=== PATIENT | female | born 1970 | race American Indian/Alaskan Native ===

== ENCOUNTER 2017-07-29 08:52 | Emergency (ER) | payer OTHER ==
[2017-07-29 08:52] VITALS: BMI 26.5
[2017-07-29 09:06] VITALS: BP 148/100; PULSE 64; RESP 18; TEMP 97.8; O2SAT 100
--- NOTE | 2017-07-29 09:56 | RAD ---
PROCEDURE: HISTORY: r/o fx COMPARISON: None TECHNIQUE: AP view of the pelvis and applicable frog leg views obtained. FINDINGS: Superolateral hip mild hip joint space narrowing with superolateral acetabular spurring. No fracture or lytic lesion. SI joints and pubic symphysis unremarkable. Incidentally noted is moderate right sided stool retention IMPRESSION: Mild arthrosis (both hips) no fracture lytic lesion. Other findings -as above.
--- NOTE | 2017-07-29 12:20 | RAD ---
PROCEDURE: Radiographs of the right elbow. HISTORY: r/o fx COMPARISON: No prior. FINDINGS: BONES: Normal. No fracture. JOINTS: Normal. No osteoarthritis. SOFT TISSUES: Normal. JOINT EFFUSION: None. OTHER FINDINGS: None. IMPRESSION: Unremarkable radiographs of the right elbow.
--- NOTE | 2017-07-29 12:21 | RAD ---
PROCEDURE: Right Knee Radiographs. HISTORY: r/o fx COMPARISON: None. FINDINGS: BONES: No fracture. JOINTS: Medial femoral tibial joint space appears slightly narrowed. Tiny spurring medial tibial spine noted. JOINT EFFUSION: None. OTHER FINDINGS: Quadriceps insertional enthesophyte IMPRESSION: No fracture. Minimal degenerative changes medial femoral tibial compartment Quadriceps insertional enthesophyte
--- NOTE | 2017-07-29 12:23 | RAD ---
PROCEDURE: Radiographs of the Right Shoulder HISTORY: r/o fx COMPARISON: 12/07/2011 images available -report not available at this time FINDINGS: BONES: No fracture JOINTS: . Glenohumeral and acromioclavicular osteoarthritis. Slight interval progression may may glenohumeral joint SOFT TISSUES: Normal. OTHER FINDINGS: None. IMPRESSION: Arthrosis -interval progression glenohumeral joint No fracture appreciated
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
== END 2017-07-29 10:20 | disposition home or self-care (01) ==
LOC: C.ER 08:52
DX: M79.1 Myalgia (principal)